=== PATIENT | female | born 1950 | race Caucasian/White ===

== ENCOUNTER 2019-10-10 09:03 | Emergency (ER) | payer MEDICARE, BC ==
--- NOTE | 2019-10-10 10:30 | UC ---
FLU HPI - HPI Summary HPI Summary: 69-year-old female presents with a day history of nasal congestion, sinus pressure, bilateral ear fullness, sore throat, and a loose nonproductive cough. Patient states that she has taken anqt-[id number]-[id number] Sudafed and ibuprofen with some relief in symptoms. Denies fever, chills, ear drainage, tinnitus, vertigo , dysphagia, chest pain, shortness of breath, abdominal pain, nausea, or vomiting. - History of Current Complaint Chief Complaint: UCGeneralIllness Stated Complaint: EAR PAIN SINUS ISSUE COUGH SORE THROAT Time Seen by Provider: 10/10/19 10:28 Hx Obtained From: Patient Pain Intensity: 7 - Allergy/Home Medications Allergies/Adverse Reactions: Allergies Allergy/AdvReac Type Severity Reaction Status Date / Time erythromycin base Allergy abd upset Verified 10/10/19 09:29 Home Medications: Home Medications Pravastatin (NF) [Pravachol (NF)] 1 tab PO DAILY 10/10/19 [History Confirmed 10/17] PMH/Surg Hx/FS Hx/Imm Hx Endocrine History: Dyslipidemia - Surgical History Surgical History: Yes Surgery Procedure, Year, and Place: appy - Family History Known Family History: Positive: Non-Contributory - Social History Occupation: Retired Lives: With Family Alcohol Use: None Substance Use Type: None Smoking Status (MU): Never Smoked Tobacco Review of Systems All Other Systems Reviewed And Are Negative: Yes Constitutional: Negative: Fever, Chills Skin: Negative: Rash Eyes: Negative: Drainage, Eye Redness ENT: Positive: Sore Throat, Ear Ache, Nasal Discharge, Sinus Congestion, Sinus Pain/Tenderness Respiratory: Positive: Cough. Negative: Shortness Of Breath Cardiovascular: Negative: Chest Pain Gastrointestinal: Negative: Abdominal Pain, Vomiting, Nausea Genitourinary: Positive: Negative Neurovascular: Positive: Negative Musculoskeletal: Negative: Myalgia Neurological: Positive: Negative Is Patient Immunocompromised?: No Physical Exam - Summary Physical Exam Summary: GENERAL APPEARANCE: Well developed, well nourished, alert and cooperative, and appears to be in no acute distress. EYES: Conjunctiva clear. No drainage. EARS: External auditory canals and tympanic membranes clear, hearing grossly intact. NOSE: Moderate nasal congestion. No nasal discharge. Maxillary sinus tenderness. THROAT: Mild pharyngeal erythema with post-nasal drip. No tonsilar inflammation , swelling, exudate, or lesions. Uvula midline. NECK: Neck supple, non-tender without lymphadenopathy. CARDIAC: Normal S1 and S2. No S3, S4 or murmurs. Rhythm is regular. There is no peripheral edema, cyanosis or pallor. Extremities are warm and well perfused. Capillary refill is less than 2 seconds. Peripheral pulses intact. LUNGS: Clear to auscultation without rales, rhonchi, wheezing or diminished breath sounds. Loose, non-productive cough. ABDOMEN: Positive bowel sounds. Soft, nondistended, nontender. No guarding or rebound. No masses or hepatosplenomegally. MUSKULOSKELETAL: ROM intact to all extremities. No joint erythema or tenderness. Normal muscular development. Normal gait. SKIN: Skin normal color, texture and turgor with no lesions or eruptions. Triage Information Reviewed: Yes Vital Signs: Initial Vital Signs Temp 98.3 F 10/10/19 09:26 Pulse 80 10/10/19 09:26 Resp 18 10/10/19 09:26 BP 129/79 10/10/19 09:26 Pulse Ox 100 10/10/19 09:26 Vital Signs Reviewed: Yes Flu Course/Dx - Course Course Of Treatment: 69-year-old female presents with a day history of nasal congestion, sinus pressure, bilateral ear fullness, sore throat, and a loose nonproductive cough. Patient states that she has taken adlc-jze-wxhlnid Sudafed and ibuprofen with some relief in symptoms. Denies fever, chills, ear drainage, tinnitus, vertigo , dysphagia, chest pain, shortness of breath, abdominal pain, nausea, or vomiting. Afebrile. Vital signs stable. Patient had moderate nasal congestion , pharyngeal erythema with postnasal drip, no tonsillar swelling or exudate, no cervical lymphadenopathy, clear bilateral breath sounds, loose nonproductive cough, otherwise unremarkable exam. Discussed with the patient that with his lack of fever and her symptoms were likely from a viral upper respiratory infection I'm recommending symptomatic treatment at this time including saline rinses, fluticasone nasal spray, and Tessalon Perles as needed for cough. She is to return here or follow up with her primary care provider in 5-7 days if symptoms are not improving. Anticipatory guidance and warning symptoms reviewed with the patient. Verbalizes understanding and agrees with plan of care. - Differential Dx/Diagnosis Differential Diagnosis/HQI/PQRI: Bronchitis, Influenza, Pneumonia, Upper Respiratory Infection, Other - pharyngitis Provider Diagnosis: Viral URI with cough Discharge ED - Sign-Out/Discharge Documenting (check all that apply): Patient Departure All imaging exams completed and their final reports reviewed: No Studies - Discharge Plan Condition: Stable Disposition: HOME Prescriptions: Benzonatate CAP* [Tessalon 100 MG CAP*] 100 mg PO TID PRN #21 cap PRN Reason: Cough Fluticasone NASAL SPRAY 50MCG* [Flonase NASAL SPRAY 50MCG*] 2 spray BOTH NARES DAILY #1 btl Patient Education Materials: Upper Respiratory Infection (ED) Referrals: No Primary Care Phys,NOPCP [Primary Care Provider] - Additional Instructions: Your history and exam are consistent with a viral upper respiratory infection. Viral infections do not respond to antibiotics and are limited to the treatment of symptoms. Viral infections typically run their course in 7-10 days. Drink plenty of fluids to avoid dehydration especially if you are running any fever. Use a saline rinse kit such as Neti Pot or NeilMed at least twice a day to help thin secretions and promote drainage of the sinuses. Use fluticasone (Flonase) nasal spray 2 sprays each nostril once daily. Use Tessalon Perles 1 capsule every 8 hours as needed for cough. Take over the counter acetaminophen (Tylenol) or ibuprofen (Advil, Motrin) according to directions as needed for pain or fever. Use salt water gargles several times a day if you have a sore throat. You may also use Chloraseptic spray or Cepacol lonzenges according to directions which contain a numbing medication and can provide some temporary relief from your sore throat. Return here or follow up with your primary care provider in 5-7 days if symptoms persist. Seek immediate medical attention in the emergency room if you have fever greater than 100.5 F despite taking acetaminophen or ibuprofen, have chest pain , difficulty breathing, are unable to swallow, or have any worsening of symptoms. - Billing Disposition and Condition Condition: STABLE Disposition: Home
== END 2019-10-10 10:48 | disposition home or self-care (01) ==
LOC: UCEAST 09:03
DX: J06.9 Acute upper respiratory infection, unspecified (principal); R05 Cough; H93.8X3 Other specified disorders of ear, bilateral; E78.5 Hyperlipidemia, unspecified; Z88.1 Allergy status to other antibiotic agents; Z79.899 Other long term (current) drug therapy
CPT/HCPCS: 99202; G0463